=== PATIENT | female | born 1965 | race Caucasian/White ===

== ENCOUNTER 2020-10-08 08:33 | Emergency (ER) | payer BC ==
--- NOTE | 2020-10-08 11:13 | RAD ---
LEFT HUMERUS 2 VIEWS: Date: 10/08/2020 No fracture of the humerus itself was detected. The shoulder appeared normal. The lateral view sugges ts a joint effusion at the elbow. See comments on forearm study. IMPRESSION: No humeral fracture. Joint effusion at the elbow. POS: HOME
--- NOTE | 2020-10-08 11:15 | RAD ---
LEFT FOREARM 2 VIEWS: Date: 10/08/2020 The radius and ulna show no major fracture; however, there is a joint effusion at the elbow. On the l ateral view, there is a question of a little bony density at the tip of the coronoid process of the u temporary administrative assistant. I cannot exclude a fracture here. Given the amount of fluid present, I would suggest immobilizin g the elbow and repeat x-ray in 5 days. IMPRESSION: Joint effusion. Possible trauma to the coronoid process of the ulna. Findings called to Dr. Lindo at 1059 hours. CODE CR. POS: HOME
--- NOTE | 2020-10-08 11:16 | RAD ---
LEFT HAND 3 VIEWS: Date: 10/08/2020 No fracture was visible at this time. There are some cystic changes in the scaphoid and possibly the lunate, which are of no current concern. The phalanges and metacarpals appeared intact. No definite a cute fracture was seen in them. The joints appear normal. IMPRESSION: No acute fracture seen. POS: HOME
== END 2020-10-08 10:56 | disposition home or self-care (01) ==
LOC: BURERS 08:33
DX: S46.811A Strain of other muscles, fascia and tendons at shoulder and upper arm level, right arm, initial encounter (principal); S50.12XA Contusion of left forearm, initial encounter; S80.12XA Contusion of left lower leg, initial encounter; F17.210 Nicotine dependence, cigarettes, uncomplicated; V59.40XA Driver of pick-up truck or van injured in collision with unspecified motor vehicles in traffic accident, initial encounter
CPT/HCPCS: 99406